=== PATIENT | female | born 1955 | race Caucasian/White ===

== ENCOUNTER 2019-03-17 08:21 | Inpatient (IN) | payer MEDICARE ==
[~2019-03-17] VITALS: Ht 160 cm; Wt 135.9 kg
[2019-03-17] VITALS (11 sets, daily range): BP systolic 110–132; BP diastolic 42–78
[~2019-03-17 08:21] MED LIST: ATOR40TA PO; BUSP10TA11 PO; CLOP75TA15 PO; CYCL-1 PO; FLUO20CA39 PO; HYDR-4353 PO; HYDR200T84 PO; LACTC PO; LOSA25TA96 PO; METF500T PO; UBID50TA3 PO
[2019-03-17] MEDS ORDERED: normal saline 1000ML IV soln IVB ONE (09:20)
[2019-03-17 09:31] LABS: CLARITY,URINE TURBID (Clear); COLOR,URINE YELLOW (Yellow); GLUCOSE, URINE NEGATIVE (Neg); KETONES,URINE NEGATIVE (Neg); LEUKOCYTE ESTERASE ,URINE NEGATIVE (Neg); NITRITES, URINE NEGATIVE (Neg); OCCULT BLOOD,URINE LARGE (Neg); PROTEIN,URINE 30 mg/dl (Neg); UROBILINOGEN,URINE 0.2 E.U/dL (0.2-1.0)
[2019-03-17 09:32] LABS: URINE HCG NEGATIVE (NEG)
[2019-03-17 09:34] LABS: UA COLLECTION TYPE CLN CATCH MIDSTREAM
[2019-03-17 09:40] LABS: AMORPHOUS URATES 3+; BACTERIA,URINE FEW /HPF (Neg); MUCUS STRANDS NONE SEEN /LPF (Neg); RBC,URINE 20-50 /HPF (0-2); SQUAMOUS EPITHELIAL CELL,UR FEW /LPF (FEW); WBC,URINE 0-4 /HPF (0-4)
[2019-03-17 09:45] LABS: BASOPHILS % (AUTO) 0.3 % (0-1); EOSINOPHILS % (AUTO) 0.1 % (0-6); HEMATOCRIT 39.3 % (35.0-45.0); HEMOGLOBIN 13.3 g/dl (12.0-16.0); LYMPHOCYTES # (AUTO) 0.8 X10'3 (1.1-4.8); LYMPHOCYTES % (AUTO) 7.8 % (21-51); MEAN CORPUSCULAR HEMOGLOBIN 30.6 PG (27.0-31.0); MEAN CORPUSCULAR HGB CONC 33.8 g/dL (33.0-36.5); MEAN CORPUSCULAR VOLUME 90.7 FL (78-98); MEAN PLATELET VOLUME 8.8 FL (7.4-10.4); MONOCYTES # (AUTO) 0.8 X10'3 (0-0.9); MONOCYTES % (AUTO) 7.1 % (2-12); NEUTROPHILS # (AUTO) 9.1 X10'3 (1.8-7.7); NEUTROPHILS % (AUTO) 84.7 % (42-75); PLATELET COUNT 211 X10'3 (140-440); RED BLOOD COUNT 4.34 X10'6 (4.20-5.60); RED CELL DISTRIBUTION WIDTH 14.1 % (11.5-14.5); WHITE BLOOD COUNT 10.7 X10'3 (4.5-11.0)
[2019-03-17 09:57] LABS: ALANINE AMINOTRANSFERASE 29 U/L (12-78); ALBUMIN 3.6 G/DL (3.4-5.0); ALBUMIN/GLOBULIN RATIO 1.1 (1.1-1.5); ALKALINE PHOSPHATASE 96 IU/L (46-116); ANION GAP 7 (8-16); ASPARTATE AMINO TRANSFERASE 23 U/L (10-37); BILIRUBIN,TOTAL 0.7 MG/DL (0.1-1.0); BLOOD UREA NITROGEN 14 MG/DL (7-18); BUN/CREATININE RATIO 10.4 (6.6-38.0); CALCIUM 8.4 MG/DL (8.5-10.1); CHLORIDE 106 MMOL/L (99-107); CREATININE 1.35 MG/DL (0.40-0.90); GLUCOSE 140 MG/DL (70-104); LIPASE 65 U/L (73-393); POTASSIUM 3.5 MMOL/L (3.5-5.1); SODIUM 140 MMOL/L (135-145); TOTAL CARBON DIOXIDE 27.5 MMOL/L (24-32); eGFR 39 ML/MIN
[2019-03-17] MEDS ORDERED: ondansetron/PF 4mg/2ml inj IV ONE ×2 (10:05→10:35)
[2019-03-17] MEDS ORDERED: HYDROmorphone inj. 0.5 MG/0.5 ML DISP.SYRIN IV ONE (10:05)
[2019-03-17] MEDS ORDERED: diphenhydrAMINE 50 mg/ml inj IV ONE (10:35)
[2019-03-17] MEDS ORDERED: morphine 4 MG/ML inj SYRINge IV ONE (10:35)
--- NOTE | 2019-03-17 10:37 | NUR ---
NEIL ABDUL INFORMED DILAUDID IS ALREADY PULLED AND OPENED, PT HAS REPORTED A REACTION TO MORPHINE BUT DOES NOT KNOW WHAT IT IS, VERBAL OK FROM NEIL ABDUL TO GIVE THE ZOFRAN AND DILAUDID PREVIOUSLY ORDERED, WILL CANCEL MORPHINE AND BENADRYL DUE TO PT PREVIOUS UNKNOWN REACTION
[2019-03-17] MEDS ORDERED: magnesium hydroxide 30ml (MOM) UD suspension PO PRN (12:35)
[2019-03-17] MEDS ORDERED: HYDROcodone/acetaminophen 5mg/325mg tablet PO PRN (12:35)
[2019-03-17] MEDS ORDERED: morphine 2 MG/ML inj. syringe IV PRN ×2 (12:35)
[2019-03-17] MEDS ORDERED: HYDROcodone/acetaminophen 10/325mg tab PO PRN (12:35)
[2019-03-17] MEDS ORDERED: acetaminophen 325mg tablet PO PRN ×2 (12:35)
[2019-03-17] MEDS ORDERED: mag hydrox/Alum hydrox/simeth 30ml oral suspension PO PRN (12:35)
[2019-03-17] MEDS ORDERED: ondansetron/PF 4mg/2ml inj IV PRN ×2 (12:35→18:05)
[2019-03-17] MEDS: normal saline 1000ml 1,000 ML IV SCH ×2 (14:21→23:10)
[2019-03-17] MEDS ORDERED: APIX5TAB3 PO (15:10)
[2019-03-17] MEDS ORDERED: ALPR-624 PO (15:10)
--- NOTE | 2019-03-17 15:16 | NUR ---
CALLED TO GIVE REPORT, NURSE IS IN ROOM GIVING MEDS, WILL CALL BACK FOR REPORT.
[2019-03-17] MEDS: morphine 2 MG/ML inj. syringe IV PRN ×2 (15:24→18:23)
--- NOTE | 2019-03-17 15:29 | NUR ---
PT REQUESTING PAIN MEDS, NOTHING DUE, CALL DR SILVER AND CHANGE MORPHINE ORDER TO 2MG IV Q 2 HOURS. ADMIN ORDERED.
--- NOTE | 2019-03-17 15:50 | NUR ---
Patient in room [facility]. I have received report from LUCHO RIVERA and had the opportunity to ask questions and assume patient care.
[2019-03-17] MEDS ORDERED: cyclobenzaprine 10mg tablet PO PRN (16:00)
[2019-03-17] MEDS ORDERED: ALPRAZolam 0.5mg tablet PO PRN (16:00)
[2019-03-17] MEDS: metFORMIN 500mg tablet PO SCH (17:00)
[2019-03-17] MEDS ORDERED: levoFLOXACIN-Levaquin 500mg/D5 100 ML IV ONE (17:45)
[2019-03-17] MEDS ORDERED: ringers solution, lacted 1,000 ML IV SCH (18:04)
[2019-03-17] MEDS ORDERED: morphine 4 MG/ML inj SYRINge IV PRN (18:05)
[2019-03-17] MEDS ORDERED: HYDROmorphone inj. 0.5 MG/0.5 ML DISP.SYRIN IV PRN ×2 (18:05)
--- NOTE | 2019-03-17 18:17 | NUR ---
Problems reprioritized. Patient report given, questions answered & plan of care reviewed with JASON RIVERA.
--- NOTE | 2019-03-17 18:30 | NUR ---
Patient in room [facility] 345. I have received report from Oscar RIVERA and had the opportunity to ask questions and assume patient care.
[2019-03-17 19:52] LABS: PRE OP PARTIAL THROMB. TIME 34 SECONDS (22-32)
[2019-03-17] MEDS ORDERED: sevoflurane 250ml liquid IH ONE (20:39)
[2019-03-17] MEDS ORDERED: midazolam 2 mg/2 ml injection ONE (20:39)
[2019-03-17] MEDS ORDERED: fentaNYL/PF 50MCG/1 ML 2ML syringe ONE (20:39)
[2019-03-17] MEDS ORDERED: busPIRone 15mg tablet PO SCH ×2 (21:00→23:18)
[2019-03-17] MEDS ORDERED: atorvastatin 20mg tablet PO SCH (21:00)
[2019-03-17] MEDS ORDERED: iohexol 300 MG/1 ML 50ml polymer ONE (21:01)
[2019-03-17] MEDS ORDERED: LIDOcaine 2% (20mg/ml) 5ml vial ONE (21:19)
[2019-03-17] MEDS ORDERED: sugammadex 200mg/2ml injection IV ONE ×2 (21:19)
[2019-03-17] MEDS ORDERED: propofol inj 20 ML IV ONE (21:19)
[2019-03-17] MEDS ORDERED: rocuronium 10mg/ml inj IV ONE (21:19)
[2019-03-17] MEDS ORDERED: glycopyrrolate 0.2mg/ml inj ONE (21:26)
[2019-03-17] MEDS ORDERED: neostigmine methylsulfate 1 MG/ML 10ml vial ONE (21:26)
[2019-03-17] MEDS ORDERED: ondansetron/PF 4mg/2ml inj ONE (21:26)
--- NOTE | 2019-03-17 21:30 | NUR ---
Received from OR via BED, accompanied by Anesthesiologist LIBRADO and report given by Anesthesiolgist. PT SLEEPY, OXYGENATING WELL ON 10 LPM O2 VIA MASK, NO RESP DISTRESS NOTED. PT DENIES ANY NAUSEA OR PAIN AT THIS TIME. VSS.
--- NOTE | 2019-03-17 22:00 | NUR ---
Report called to receiving nurse. Transferred via BED Belongings IN PT ROOM. DENIES PAIN. VSS. TRANSFERRED BACK TO 3 SURG IN STABLE CONDITION. Special Issues communicated to receiving nurse.
[2019-03-17] MEDS ORDERED: busPIRone 15mg tablet PO ONE (23:25)
[2019-03-18] VITALS: BP_SYST 112; BP_SYST 122; BP_DIAS 46; BP_DIAS 52
[2019-03-18] MEDS: morphine 2 MG/ML inj. syringe IV PRN (00:51)
[2019-03-18 01:00] VITALS: BP 115/51
[2019-03-18 02:00] VITALS: BP 119/57
[2019-03-18 05:14] LABS: BASOPHILS % (AUTO) 0.3 % (0-1); EOSINOPHILS % (AUTO) 0.6 % (0-6); LYMPHOCYTES # (AUTO) 1.3 X10'3 (1.1-4.8); LYMPHOCYTES % (AUTO) 17.5 % (21-51); MEAN CORPUSCULAR HEMOGLOBIN 30.6 PG (27.0-31.0); MEAN CORPUSCULAR HGB CONC 33.5 g/dL (33.0-36.5); MEAN CORPUSCULAR VOLUME 91.4 FL (78-98); MEAN PLATELET VOLUME 9.2 FL (7.4-10.4); MONOCYTES # (AUTO) 0.7 X10'3 (0-0.9); MONOCYTES % (AUTO) 9.1 % (2-12); NEUTROPHILS # (AUTO) 5.3 X10'3 (1.8-7.7); NEUTROPHILS % (AUTO) 72.5 % (42-75); PLATELET COUNT 161 X10'3 (140-440); RED CELL DISTRIBUTION WIDTH 14.4 % (11.5-14.5); WHITE BLOOD COUNT 7.3 X10'3 (4.5-11.0)
[2019-03-18 05:18] LABS: ALBUMIN 2.7 G/DL (3.4-5.0); ANION GAP 5 (8-16); BLOOD UREA NITROGEN 11 MG/DL (7-18); BUN/CREATININE RATIO 11.7 (6.6-38.0); CALCIUM 7.7 MG/DL (8.5-10.1); CHLORIDE 106 MMOL/L (99-107); CREATININE 0.94 MG/DL (0.40-0.90); GLUCOSE 106 MG/DL (70-104); POTASSIUM 3.5 MMOL/L (3.5-5.1); SODIUM 141 MMOL/L (135-145); eGFR 60 ML/MIN
--- NOTE | 2019-03-18 06:48 | NUR ---
Problems reprioritized. Patient report given, questions answered & plan of care reviewed with Teri RIVERA.
--- NOTE | 2019-03-18 06:51 | NUR ---
Patient in room [facility] 345. I have received report from Molly RIVERA and had the opportunity to ask questions and assume patient care.
[2019-03-18 08:00] VITALS: BP 117/57
[2019-03-18] MEDS ORDERED: UBIDECARENONE 300 MG PO SCH (08:00)
[2019-03-18] MEDS ORDERED: losartan 25mg tablet PO SCH (08:00)
[2019-03-18] MEDS ORDERED: FLUoxetine 20mg capsule PO SCH (08:00)
[2019-03-18] MEDS ORDERED: hydroxychloroquine 200mg tablet PO SCH (08:00)
[2019-03-18] MEDS ORDERED: lactobacillus rhamnosus 10,000 MMU CELLS/CAPSULE PO SCH (08:00)
[2019-03-18] MEDS: metFORMIN 500mg tablet PO SCH (08:02)
[2019-03-18] MEDS ORDERED: HYDR-4353 PO (09:01)
[2019-03-18] MEDS ORDERED: SULF1TAB49 PO (09:02)
[2019-03-18] MEDS ORDERED: FLO0.4C PO (09:06)
[2019-03-18 11:00] VITALS: BP 162/77
[2019-03-18] MEDS ORDERED: losartan 50mg tablet PO SCH (11:01)
== END 2019-03-18 11:25 | disposition home or self-care (01) | DRG 660 ==
LOC: ER 08:24 → ED HOLD 13:07 → EDBEDREQ 14:45 → SUR 3N 16:00
PROVIDERS: ADMIT Internal Medicine; ATTEND Internal Medicine
PROC: BT1F1ZZ Fluoroscopy of Left Kidney, Ureter and Bladder using Low Osmolar Contrast (ICD-10-PCS; 2019-03-17)
PROC: 0T778DZ Dilation of Left Ureter with Intraluminal Device, Via Natural or Artificial Opening Endoscopic (ICD-10-PCS; principal; 2019-03-17 20:39)
DX: N13.2 Hydronephrosis with renal and ureteral calculous obstruction (principal); Z68.43 Body mass index [BMI] 50.0-59.9, adult; N28.89 Other specified disorders of kidney and ureter; E11.9 Type 2 diabetes mellitus without complications; E78.5 Hyperlipidemia, unspecified; I10 Essential (primary) hypertension; I48.0 Paroxysmal atrial fibrillation; M06.9 Rheumatoid arthritis, unspecified; N17.9 Acute kidney failure, unspecified; R31.0 Gross hematuria; Z87.442 Personal history of urinary calculi; Z79.01 Long term (current) use of anticoagulants; Z84.1 Family history of disorders of kidney and ureter; Z86.73 Personal history of transient ischemic attack (TIA), and cerebral infarction without residual deficits; Z87.891 Personal history of nicotine dependence; Z88.0 Allergy status to penicillin; Z88.8 Allergy status to other drugs, medicaments and biological substances; E66.01 Morbid (severe) obesity due to excess calories
CPT/HCPCS: 36415; 71045; 74176; 80048; 80053; 81001; 81025; 82948; 83036; 83690; 85025; 85610; 85730; 87081; 93005; 96361; 96374; 96375; 99285; A4618; C1758; C1769; C2617; C9399; G0378; J1170; J1200; J1956; J2001; J2250; J2270; J2405; J2704; J2710; J3010; J3490; J7030; J7120; Q9967

== ENCOUNTER 2019-03-29 04:53 | Emergency (ER) | payer MEDICARE ==
[~2019-03-29] VITALS: Ht 160 cm; Wt 138.6 kg
[~2019-03-29 04:53] MED LIST changes: +ALPR-624 PO; +APIX5TAB3 PO; -CLOP75TA15 PO; +FLO0.4C PO; +SULF1TAB49 PO
[2019-03-29] MEDS ORDERED: LIDOcaine 2% 10ml TOPICAL JELLY (Urojet) MM ONE (05:10)
[2019-03-29] MEDS ORDERED: normal saline 1000ML IV soln IVB ONE (05:25)
[2019-03-29] MEDS ORDERED: CefTRIAXone 2gm/D5W 50ml 50 ML IV ONE (05:25)
[2019-03-29] MEDS ORDERED: tamsulosin 0.4mg capsule PO SCH (05:25)
[2019-03-29] MEDS ORDERED: tamsulosin 0.4mg capsule PO ONE (05:25)
--- NOTE | 2019-03-29 06:16 | NUR ---
Attempted to straight cath pt for urinary retention. Only small amount of blood and mucus drained. Pt voided urine and clots around catheter. Catheter flushed with 20 ml sterile water to clear catheter. Some fluid drained and catheter became clogged again. Catheter again flushed with 20 ml sterile water to clear catheter. Again, a small amount of fluid drained and again stopped. Keith 22 [place] placed. A small amount a fluid drained and collected for sample. Catheter flushed with 20 ml sterile water, with no drainage. Suction applied to syringe, clots and blood removed. Again flushed and applied suction. More clots and blood. Bedside bag attached to catheter. Slow cloudy, johnson colored drainage.
[2019-03-29 06:28] LABS: CLARITY,URINE Bloody (Clear); COLOR,URINE RED (Yellow); UA COLLECTION TYPE OTHER
[2019-03-29 06:29] LABS: BASOPHILS % (AUTO) 0.7 % (0-1); EOSINOPHILS # (AUTO) 0.2 X10'3 (0-0.9); HEMATOCRIT 36.6 % (35.0-45.0); HEMOGLOBIN 12.3 g/dl (12.0-16.0); LYMPHOCYTES # (AUTO) 1.3 X10'3 (1.1-4.8); LYMPHOCYTES % (AUTO) 23.1 % (21-51); MEAN CORPUSCULAR HEMOGLOBIN 30.4 PG (27.0-31.0); MEAN CORPUSCULAR HGB CONC 33.7 g/dL (33.0-36.5); MEAN CORPUSCULAR VOLUME 90.3 FL (78-98); MEAN PLATELET VOLUME 8.2 FL (7.4-10.4); MONOCYTES # (AUTO) 0.4 X10'3 (0-0.9); MONOCYTES % (AUTO) 7.5 % (2-12); NEUTROPHILS # (AUTO) 3.7 X10'3 (1.8-7.7); NEUTROPHILS % (AUTO) 65.7 % (42-75); PLATELET COUNT 237 X10'3 (140-440); RED BLOOD COUNT 4.05 X10'6 (4.20-5.60); RED CELL DISTRIBUTION WIDTH 14.2 % (11.5-14.5); WHITE BLOOD COUNT 5.6 X10'3 (4.5-11.0)
[2019-03-29 06:30] LABS: BACTERIA,URINE NONE SEEN /HPF (Neg); MUCUS STRANDS NONE SEEN /LPF (Neg); RBC,URINE TNTC /HPF (0-2); SQUAMOUS EPITHELIAL CELL,UR NONE SEEN /LPF (FEW); WBC,URINE 0-4 /HPF (0-4)
[2019-03-29 06:44] LABS: ALANINE AMINOTRANSFERASE 21 U/L (12-78); ALBUMIN 3.1 G/DL (3.4-5.0); ALBUMIN/GLOBULIN RATIO 0.9 (1.1-1.5); ALKALINE PHOSPHATASE 83 IU/L (46-116); ANION GAP 8 (8-16); ASPARTATE AMINO TRANSFERASE 18 U/L (10-37); BILIRUBIN,TOTAL 0.7 MG/DL (0.1-1.0); BLOOD UREA NITROGEN 12 MG/DL (7-18); BUN/CREATININE RATIO 13.5 (6.6-38.0); CALCIUM 8.3 MG/DL (8.5-10.1); CHLORIDE 106 MMOL/L (99-107); CREATININE 0.89 MG/DL (0.40-0.90); GLUCOSE 108 MG/DL (70-104); MAGNESIUM 1.8 MG/DL (1.5-2.4); POTASSIUM 3.9 MMOL/L (3.5-5.1); SODIUM 141 MMOL/L (135-145); TOTAL CARBON DIOXIDE 27.3 MMOL/L (24-32); TOTAL PROTEIN 6.7 G/DL (6.4-8.2); eGFR 64 ML/MIN
[2019-03-29 06:54] LABS: PARTIAL THROMBOPLASTIN TIME 32 SECONDS (22-32)
--- NOTE | 2019-03-29 06:56 | NUR ---
pt out to ct via gianni with adjunct trainer
--- NOTE | 2019-03-29 07:17 | NUR ---
pt returns from ct
[2019-03-29] MEDS ORDERED: morphine 2 MG/ML inj. syringe IV PRN (07:35)
[2019-03-29] MEDS ORDERED: ketorolac tromethamine 15mg/ml inj. IV ONE (07:35)
[2019-03-29] MEDS ORDERED: acetaminophen 325mg tablet PO ONE (07:55)
[2019-03-29 08:50] VITALS: BP 140/68
== END 2019-03-29 08:52 | disposition home or self-care (01) ==
LOC: ER 04:54
DX: N13.2 Hydronephrosis with renal and ureteral calculous obstruction (principal); R31.9 Hematuria, unspecified; I10 Essential (primary) hypertension; Z86.73 Personal history of transient ischemic attack (TIA), and cerebral infarction without residual deficits; Z88.0 Allergy status to penicillin; Z88.8 Allergy status to other drugs, medicaments and biological substances; Z79.899 Other long term (current) drug therapy
CPT/HCPCS: 36415; 74176; 80053; 81001; 83605; 83735; 84145; 85025; 85610; 85730; 87040; 96365; 96375; 99285; J0696; J1885

== ENCOUNTER 2020-11-19 15:32 | Inpatient (IN) | payer MEDICARE ==
[~2020-11-19] VITALS: Ht 160 cm; Wt 122.7 kg
[~2020-11-19 15:32] MED LIST changes: -FLO0.4C PO; -SULF1TAB49 PO
[2020-11-19 17:36] LABS: BASOPHILS % (AUTO) 0.2 % (0-1); EOSINOPHILS # (AUTO) 0.1 X10'3 (0-0.9); EOSINOPHILS % (AUTO) 0.6 % (0-6); HEMATOCRIT 39.3 % (35.0-45.0); HEMOGLOBIN 12.9 g/dl (12.0-16.0); LYMPHOCYTES # (AUTO) 1.1 X10'3 (1.1-4.8); LYMPHOCYTES % (AUTO) 9.1 % (21-51); MEAN CORPUSCULAR HEMOGLOBIN 29.9 PG (27.0-31.0); MEAN CORPUSCULAR HGB CONC 32.8 g/dL (33.0-36.5); MEAN CORPUSCULAR VOLUME 91.1 FL (78-98); MEAN PLATELET VOLUME 8.9 FL (7.4-10.4); MONOCYTES # (AUTO) 1.3 X10'3 (0-0.9); MONOCYTES % (AUTO) 10.1 % (2-12); PLATELET COUNT 212 X10'3 (140-440); RED BLOOD COUNT 4.31 X10'6 (4.20-5.60); WHITE BLOOD COUNT 12.5 X10'3 (4.5-11.0)
[2020-11-19 17:38] LABS: ALANINE AMINOTRANSFERASE 23 U/L (12-78); ALBUMIN 3.3 G/DL (3.4-5.0); ALBUMIN/GLOBULIN RATIO 0.8 (1.1-1.5); ALKALINE PHOSPHATASE 89 IU/L (46-116); ANION GAP 10 (8-16); ASPARTATE AMINO TRANSFERASE 17 U/L (10-37); BILIRUBIN,TOTAL 0.8 MG/DL (0.1-1.0); BLOOD UREA NITROGEN 12 MG/DL (7-18); BUN/CREATININE RATIO 10.1 (6.6-38.0); CALCIUM 8.2 MG/DL (8.5-10.1); CHLORIDE 101 MMOL/L (99-107); CREATININE 1.19 MG/DL (0.40-0.90); GLUCOSE 123 MG/DL (70-104); POTASSIUM 3.5 MMOL/L (3.5-5.1); SODIUM 138 MMOL/L (135-145); TOTAL CARBON DIOXIDE 26.9 MMOL/L (24-32); TOTAL PROTEIN 7.3 G/DL (6.4-8.2); eGFR 46 ML/MIN
[2020-11-19 19:55] LABS: CLARITY,URINE SLIGHTLY CLOUDY (Clear); COLOR,URINE YELLOW (Yellow); GLUCOSE, URINE NEGATIVE (Neg); KETONES,URINE NEGATIVE (Neg); LEUKOCYTE ESTERASE ,URINE NEGATIVE (Neg); NITRITES, URINE NEGATIVE (Neg); OCCULT BLOOD,URINE SMALL (Neg); PH,URINE 5.5 (4.8-8.0); PROTEIN,URINE 100 mg/dl (Neg)
[2020-11-19 20:29] LABS: RBC,URINE 0-2 /HPF (0-2); UA COLLECTION TYPE CLN CATCH MIDSTREAM; WBC,URINE 0-4 /HPF (0-4)
[2020-11-19 20:30] LABS: BACTERIA,URINE NONE SEEN /HPF (Neg); MUCUS STRANDS FEW /LPF (Neg); SQUAMOUS EPITHELIAL CELL,UR MODERATE /LPF (FEW)
[2020-11-19] MEDS ORDERED: normal saline 1000ml 1,000 ML IV ONE ×2 (20:50→20:55)
[2020-11-19] MEDS ORDERED: ketorolac tromethamine 15mg/ml inj. IV ONE (20:50)
[2020-11-19] MEDS ORDERED: ondansetron/PF 4mg/2ml inj IV ONE (20:55)
[2020-11-19] MEDS ORDERED: fentaNYL/PF 50MCG/1 ML 2ML syringe IV ONE (20:55)
[2020-11-19] MEDS ORDERED: iohexol 300mg/ml 100ml inj. ONE (21:02)
[2020-11-19] MEDS ORDERED: metroNIDAZOLE-Flagyl 500mg/NS 100 ML IV STA (21:03)
[2020-11-19] MEDS ORDERED: CefTRIAXone 2gm/D5W 50ml BAG 50 ML IV ONE (21:05)
--- NOTE | 2020-11-19 22:18 | NUR ---
Tsering daughter [phone]
[2020-11-20] MEDS ORDERED: ondansetron/PF 4mg/2ml inj IV ONE ×2 (00:10→03:05)
[2020-11-20] MEDS ORDERED: morphine 4 MG/ML inj SYRINge IV ONE ×3 (00:10→04:55)
--- NOTE | 2020-11-20 01:40 | NUR ---
patient asleep at this time, will cont to monitor.
--- NOTE | 2020-11-20 03:23 | NUR ---
PATIENT HELPED TO THE POTTY CHAIR AND MEDS GIVEN, SEE MAR. PATIENT NOW SLEEPING COMFORTABLY. ANOTHER WARM BLANKET PROVIDED.
[2020-11-20] MEDS ORDERED: dextrose ORAL solution 15 GM/59 ML bottle PO PRN ×2 (08:00)
[2020-11-20] MEDS ORDERED: mag hydrox/Alum hydrox/simeth 30ml oral suspension PO PRN (08:00)
[2020-11-20] MEDS ORDERED: dextrose 50%-water 50ml dispensing syringe IV PRN ×2 (08:00)
[2020-11-20] MEDS ORDERED: ondansetron/PF 4mg/2ml inj IV PRN (08:00)
[2020-11-20] MEDS ORDERED: morphine 2 MG/ML inj. syringe IV PRN (08:00)
[2020-11-20] MEDS: docusate sod 100mg capsule PO SCH ×2 (08:00→20:49)
[2020-11-20] MEDS ORDERED: magnesium hydroxide 30ml (MOM) UD suspension PO PRN (08:00)
[2020-11-20] MEDS ORDERED: glucagon, human recombinant 1mg kit SUBCUT PRN (08:00)
[2020-11-20] MEDS ORDERED: MESSAGE TO PHARMACY PO ONE (08:00)
[2020-11-20] MEDS ORDERED: acetaminophen 325mg tablet PO PRN ×2 (08:00)
[2020-11-20] MEDS ORDERED: insulin Lispro (HumaLOG) vial - multi-dose SQ SCH (08:00)
[2020-11-20] MEDS: metroNIDAZOLE-Flagyl 500mg/NS 100 ML IV SCH ×3 (08:12→23:54)
[2020-11-20] MEDS: normal saline 1000ml 1,000 ML IV SCH ×3 (10:01→23:54)
[2020-11-20] MEDS: CLINDAMYCIN/D5W 900mg/50ml 50 ML IV SCH ×2 (10:02→17:44)
[2020-11-20 10:21] LABS: HEMOGLOBIN A1C 5.8 % (4.5-6.2)
[2020-11-20] MEDS: morphine 2 MG/ML inj. syringe IV PRN ×2 (10:47→18:52)
[2020-11-20] MEDS ORDERED: CYAN500T71 SL (12:33)
[2020-11-20] MEDS ORDERED: DICL20GE TOP (12:37)
[2020-11-20] MEDS ORDERED: TRAM50TA2 PO (12:37)
[2020-11-20] MEDS ORDERED: CHOL100025 PO (12:37)
[2020-11-20] MEDS ORDERED: cyclobenzaprine 10mg tablet PO PRN (15:15)
[2020-11-20] MEDS ORDERED: ALPRAZolam 0.5mg tablet PO PRN (15:15)
[2020-11-20] MEDS ORDERED: DICLOFENAC SODIUM TP PRN (15:15)
[2020-11-20] MEDS ORDERED: traMADol 50MG tablet PO PRN (15:15)
[2020-11-20] MEDS: busPIRone 15mg tablet PO SCH (20:49)
[2020-11-20] MEDS: apixaban 5mg tablet PO SCH (20:50)
[2020-11-20] MEDS: atorvastatin 20mg tablet PO SCH (20:50)
[2020-11-20] MEDS ORDERED: insulin glargine (Lantus) pen - multi-dose SQ SCH (21:00)
--- NOTE | 2020-11-21 00:50 | NUR ---
Received report from Payton RIVERA from ED, patient came up to floor via hospital bed. Bed placed in locked & low position. Call light within reach.
[2020-11-21 01:00] VITALS: BP 128/62
[2020-11-21] MEDS: morphine 2 MG/ML inj. syringe IV PRN ×2 (01:01→07:31)
[2020-11-21] MEDS: CLINDAMYCIN/D5W 900mg/50ml 50 ML IV SCH ×4 (01:15→23:55)
[2020-11-21] MEDS: HYDROcodone/acetaminophen 5mg/325mg tablet PO PRN (05:46)
[2020-11-21 06:00] VITALS: BP 128/72
[2020-11-21 06:15] LABS: BASOPHILS % (AUTO) 0.5 % (0-1); EOSINOPHILS # (AUTO) 0.2 X10'3 (0-0.9); EOSINOPHILS % (AUTO) 2.4 % (0-6); HEMATOCRIT 31.2 % (35.0-45.0); HEMOGLOBIN 10.5 g/dl (12.0-16.0); LYMPHOCYTES # (AUTO) 1.3 X10'3 (1.1-4.8); LYMPHOCYTES % (AUTO) 19.9 % (21-51); MEAN CORPUSCULAR HEMOGLOBIN 29.9 PG (27.0-31.0); MEAN CORPUSCULAR HGB CONC 33.6 g/dL (33.0-36.5); MEAN PLATELET VOLUME 8.6 FL (7.4-10.4); MONOCYTES # (AUTO) 0.7 X10'3 (0-0.9); MONOCYTES % (AUTO) 10.2 % (2-12); NEUTROPHILS # (AUTO) 4.4 X10'3 (1.8-7.7); PLATELET COUNT 178 X10'3 (140-440); RED CELL DISTRIBUTION WIDTH 14.7 % (11.5-14.5); WHITE BLOOD COUNT 6.6 X10'3 (4.5-11.0)
[2020-11-21 06:19] LABS: ALBUMIN 2.3 G/DL (3.4-5.0); ANION GAP 7 (8-16); BLOOD UREA NITROGEN 10 MG/DL (7-18); BUN/CREATININE RATIO 12.7 (6.6-38.0); CALCIUM 7.7 MG/DL (8.5-10.1); CHLORIDE 106 MMOL/L (99-107); CREATININE 0.79 MG/DL (0.40-0.90); GLUCOSE 105 MG/DL (70-104); POTASSIUM 3.8 MMOL/L (3.5-5.1); SODIUM 140 MMOL/L (135-145); TOTAL CARBON DIOXIDE 26.9 MMOL/L (24-32); eGFR 73 ML/MIN
--- NOTE | 2020-11-21 06:32 | NUR ---
Problems reprioritized. Patient report given, questions answered & plan of care reviewed with Lizzette RIVERA.
--- NOTE | 2020-11-21 06:55 | NUR ---
Patient in room [facility] 4022. I have received report from jona weinstein and had the opportunity to ask questions and assume patient care.
[2020-11-21] MEDS: metroNIDAZOLE-Flagyl 500mg/NS 100 ML IV SCH ×2 (07:15→15:37)
[2020-11-21] MEDS: cholecalciferol (vitamin D3) 1,000 unit (25mcg) tablet PO SCH (07:16)
[2020-11-21] MEDS: docusate sod 100mg capsule PO SCH ×2 (07:16→19:55)
[2020-11-21] MEDS: FLUoxetine 20mg capsule PO SCH (07:16)
[2020-11-21] MEDS: apixaban 5mg tablet PO SCH ×2 (07:18→19:55)
[2020-11-21] MEDS: lactobacillus rhamnosus 10,000 MMU CELLS/CAPSULE PO SCH (07:18)
[2020-11-21] MEDS: busPIRone 15mg tablet PO SCH ×3 (07:18→19:55)
[2020-11-21] MEDS: losartan 50mg tablet PO SCH (07:19)
[2020-11-21] MEDS: hydroxychloroquine 200mg tablet PO SCH (08:00)
[2020-11-21] MEDS ORDERED: UBIDECARENONE 200 MG PO SCH (08:00)
--- NOTE | 2020-11-21 09:06 | NUR ---
DM consult: Pt with A1c 5.8%, DM education not warranted. Pt currently on a full liquid diet, recommend diet advancement to regular as medically indicated. Will continue to follow. Addendum: 11/21/20 at [address] Amended: Links added.
[2020-11-21 09:31] VITALS: BP 99/53
[2020-11-21] MEDS: normal saline 1000ml 1,000 ML IV SCH ×2 (09:51→21:34)
--- NOTE | 2020-11-21 12:31 | NUR ---
PAGER ID: [phone] MESSAGE: noe weinstein [phone] re: Michelle Feliciano [id number]. Pt would like accucheck nomi'sergei. A1C -5.8. Hasn't met protocol. Thank you.
--- NOTE | 2020-11-21 14:48 | NUR ---
Pt c/o lower jaw pain at times this shift. Pt states she is always in pain with her rheumatoid arthritis so it is difficult to answer pain question. Pt has ambulated with a cane stand by assist to the bathroom multiple times this shift. Per md pt will continue IV antibiotics today and care team will reassess tomorrow. Pts lower jaw is reddened/hot/firm to the touch. Will continue to monitor.
[2020-11-21] MEDS: HYDROcodone/acetaminophen 10/325mg tab PO PRN ×2 (15:34→19:57)
[2020-11-21 18:00] VITALS: BP 111/57
--- NOTE | 2020-11-21 18:14 | NUR ---
Problems reprioritized. Patient report given, questions answered & plan of care reviewed with jona weinstein.
--- NOTE | 2020-11-21 18:14 | NUR ---
Patient in room [facility] 4022. I have received report from Lizzette RIVERA and had the opportunity to ask questions and assume patient care.
[2020-11-21] MEDS: atorvastatin 20mg tablet PO SCH (19:55)
[2020-11-21 22:00] VITALS: BP 124/61
[2020-11-22] MEDS: metroNIDAZOLE-Flagyl 500mg/NS 100 ML IV SCH ×2 (00:34→07:36)
[2020-11-22] MEDS: HYDROcodone/acetaminophen 5mg/325mg tablet PO PRN ×2 (05:45→12:37)
[2020-11-22 06:00] VITALS: BP 126/62
--- NOTE | 2020-11-22 06:37 | NUR ---
Problems reprioritized. Patient report given, questions answered & plan of care reviewed with Pancho RIVERA.
--- NOTE | 2020-11-22 06:42 | NUR ---
Patient in room [facility] 4022. I have received report from Mellisa weinstein and had the opportunity to ask questions and assume patient care.
[2020-11-22 06:48] LABS: ALBUMIN 2.5 G/DL (3.4-5.0); ANION GAP 7 (8-16); BLOOD UREA NITROGEN 14 MG/DL (7-18); BUN/CREATININE RATIO 17.3 (6.6-38.0); CALCIUM 7.9 MG/DL (8.5-10.1); CHLORIDE 108 MMOL/L (99-107); CREATININE 0.81 MG/DL (0.40-0.90); GLUCOSE 97 MG/DL (70-104); POTASSIUM 3.8 MMOL/L (3.5-5.1); SODIUM 141 MMOL/L (135-145); TOTAL CARBON DIOXIDE 25.6 MMOL/L (24-32); eGFR 71 ML/MIN
[2020-11-22 06:59] LABS: BASOPHILS % (AUTO) 0.7 % (0-1); EOSINOPHILS # (AUTO) 0.2 X10'3 (0-0.9); HEMOGLOBIN 11.3 g/dl (12.0-16.0); LYMPHOCYTES # (AUTO) 1.1 X10'3 (1.1-4.8); MEAN CORPUSCULAR HEMOGLOBIN 30.1 PG (27.0-31.0); MEAN CORPUSCULAR HGB CONC 33.1 g/dL (33.0-36.5); MEAN CORPUSCULAR VOLUME 90.9 FL (78-98); MEAN PLATELET VOLUME 8.9 FL (7.4-10.4); MONOCYTES # (AUTO) 0.6 X10'3 (0-0.9); MONOCYTES % (AUTO) 10.2 % (2-12); NEUTROPHILS % (AUTO) 67.1 % (42-75); PLATELET COUNT 194 X10'3 (140-440); RED BLOOD COUNT 3.74 X10'6 (4.20-5.60)
[2020-11-22] MEDS: apixaban 5mg tablet PO SCH ×2 (07:24→08:00)
[2020-11-22] MEDS: busPIRone 15mg tablet PO SCH ×2 (07:25→12:37)
[2020-11-22] MEDS: cholecalciferol (vitamin D3) 1,000 unit (25mcg) tablet PO SCH (07:25)
[2020-11-22] MEDS: losartan 50mg tablet PO SCH ×2 (07:26→07:31)
[2020-11-22] MEDS: lactobacillus rhamnosus 10,000 MMU CELLS/CAPSULE PO SCH (07:26)
--- NOTE | 2020-11-22 07:30 | NUR ---
pt refused to take their eliquis because they think they will have oral surgery soon. pt is on eliquis due to past CVA. I held the med at the pts request and will let dr Landin know.
[2020-11-22] MEDS: FLUoxetine 20mg capsule PO SCH (07:31)
[2020-11-22] MEDS: hydroxychloroquine 200mg tablet PO SCH (07:32)
[2020-11-22] MEDS: CLINDAMYCIN/D5W 900mg/50ml 50 ML IV SCH ×2 (07:42→15:32)
[2020-11-22] MEDS: docusate sod 100mg capsule PO SCH (08:00)
[2020-11-22 10:00] VITALS: BP 133/86
[2020-11-22] MEDS: normal saline 1000ml 1,000 ML IV SCH (10:00)
--- NOTE | 2020-11-22 10:10 | NUR ---
dr sánchez ordered to dc flagyl, flagyl was not done infusing but ok per .
[2020-11-22] MEDS ORDERED: CLIN-91 PO (11:26)
--- NOTE | 2020-11-22 16:45 | NUR ---
pt was given all discharge information and had no further questions. pt was taken to lobby in wheelchair with all belongings. She had her spouse with her and will be going home with him in a private vehicle.
== END 2020-11-22 16:45 | disposition home or self-care (01) | DRG 158 ==
LOC: ER 15:33 → ED HOLD 11-20 08:00 → EDBEDREQ 11-20 23:22 → ORTHO 4S 11-21 00:50
PROVIDERS: ADMIT Internal Medicine; ATTEND Internal Medicine
PROC: BW2F1ZZ Computerized Tomography (CT Scan) of Neck using Low Osmolar Contrast (ICD-10-PCS; principal; 2020-11-19)
DX: K04.7 Periapical abscess without sinus (principal); L03.211 Cellulitis of face; Z68.42 Body mass index [BMI] 45.0-49.9, adult; M60.9 Myositis, unspecified; E11.9 Type 2 diabetes mellitus without complications; E66.01 Morbid (severe) obesity due to excess calories; E78.5 Hyperlipidemia, unspecified; R59.1 Generalized enlarged lymph nodes; Z20.822 Contact with and (suspected) exposure to COVID-19; F32.9 Major depressive disorder, single episode, unspecified; F41.9 Anxiety disorder, unspecified; I10 Essential (primary) hypertension; Z79.01 Long term (current) use of anticoagulants; Z86.73 Personal history of transient ischemic attack (TIA), and cerebral infarction without residual deficits; Z87.442 Personal history of urinary calculi; Z79.84 Long term (current) use of oral hypoglycemic drugs; Z79.899 Other long term (current) drug therapy; Z88.0 Allergy status to penicillin; Z88.8 Allergy status to other drugs, medicaments and biological substances
CPT/HCPCS: 36415; 70491; 71045; 80048; 80053; 81001; 82948; 83036; 83605; 83880; 84145; 85025; 87040; 87081; 87635; 97116; 97161; 97530; 99285; C9803; G0378; J0696; J1815; J1885; J2270; J2405; J3010; J3490; J7030; Q9967

== ENCOUNTER 2024-06-11 09:42 | Outpatient (CLI) | payer MEDICARE ==
[2024-06-11] VITALS (23 sets, daily range): BP systolic 114–154; BP diastolic 57–86; PULSE 67–101
[~2024-06-11 09:42] MED LIST changes: +CHOL100025 PO; +CYAN500T71 SL; +DICL20GE TOP; +HYDR200T73 PO; -HYDR200T84 PO; +LOSA-415 PO; -LOSA25TA96 PO; +TRAM50TA2 PO
== END 2024-06-11 23:59 | disposition home or self-care (01) ==
LOC: CARD DIAG 09:42
PROVIDERS: ATTEND Internal Medicine Interventional Cardiology
DX: R42 Dizziness and giddiness (principal)
CPT/HCPCS: 93660